=== PATIENT | male | born 1950 | race Caucasian/White ===

== ENCOUNTER 2021-10-04 19:06 | Emergency (ER) | payer MEDICARE ==
[2021-10-04 19:12] VITALS: TEMP 97.1
--- NOTE | 2021-10-04 19:26 | ED ---
General Adult HPI - General Chief complaint: Urogenital Stated complaint: Blood in urine Time Seen by Provider: 10/04/21 19:13 Source: patient, RN notes reviewed Mode of arrival: ambulatory Limitations: no limitations - History of Present Illness Initial comments: Patient is a pleasant 71-year-old male presenting to the emergency Department with an episode of hematuria. Episode occurred prior to arrival. No discomfort. No frequency. No urgency. No rectal bleeding. Patient does have recent diagnosis of diverticulitis several weeks ago. Patient denies any abdominal discomfort or rectal bleeding. - Related Data Home Medications Medication Instructions Recorded Confirmed Atorvastatin [Lipitor] 40 mg PO DAILY 10/04/21 10/04/21 Clopidogrel [Plavix] 75 mg PO DAILY 10/04/21 10/04/21 Multivitamins, Thera [Multivitamin 1 tab PO DAILY 10/04/21 10/04/21 (formulary)] Turmeric Root Extract [Turmeric] 500 mg PO DAILY 10/04/21 10/04/21 lisinopriL [Zestril] 20 mg PO DAILY 10/04/21 10/04/21 predniSONE 5 mg PO BID 10/04/21 10/04/21 Previous Rx's Medication Instructions Recorded Cephalexin [Keflex] 500 mg PO QID #20 cap 10/04/21 Allergies Allergy/AdvReac Type Severity Reaction Status Date / Time No Known Allergies Allergy Verified 10/04/21 20:14 Review of Systems ROS Statement: Those systems with pertinent positive or pertinent negative responses have been documented in the HPI. ROS Other: All systems not noted in ROS Statement are negative. Constitutional: Denies: fever Eyes: Denies: eye pain ENT: Denies: ear pain Respiratory: Denies: cough Cardiovascular: Denies: chest pain Endocrine: Denies: fatigue Gastrointestinal: Denies: abdominal pain Genitourinary: Reports: hematuria. Denies: urgency, dysuria, frequency, discharge, testicular pain, testicular mass Musculoskeletal: Denies: back pain Past Medical History Past Medical History: Cancer, CVA/TIA, Hyperlipidemia, Hypertension, Prostate Disorder Additional Past Medical History / Comment(s): prostate cancer History of Any Multi-Drug Resistant Organisms: None Reported Past Surgical History: No Surgical Hx Reported Past Psychological History: No Psychological Hx Reported Smoking Status: Never smoker Past Alcohol Use History: Occasional Past Drug Use History: None Reported General Exam Limitations: no limitations General appearance: alert, in no apparent distress Head exam: Present: normocephalic Eye exam: Present: normal appearance Neck exam: Present: normal inspection Respiratory exam: Present: normal lung sounds bilaterally Cardiovascular Exam: Present: regular rate, normal rhythm GI/Abdominal exam: Present: soft. Absent: distended, tenderness, guarding, rebound, rigid, pulsatile mass exam: Present: normal inspection. Absent: urethral discharge, scrotal swelling Extremities exam: Present: normal inspection Back exam: Present: normal inspection Neurological exam: Present: alert Psychiatric exam: Present: normal affect, normal mood Skin exam: Present: normal color Course Vital Signs 10/04/21 10/04/21 19:08 20:07 Temperature 97.1 F L Pulse Rate 116 H 112 H Respiratory 20 16 Rate Blood Pressure 131/82 131/106 O2 Sat by Pulse 99 98 Oximetry Medical Decision Making - Medical Decision Making Patient reevaluated and symptom-free other than 2 episodes of hematuria. Patient updated and need for close follow-up and states he has urology in [place] where he is going. Patient is comfortable with discharge. Patient advised to be reevaluated increases or other signs including but not limited to fatigue or weakness, difficulty breathing, lightheadedness or other concerns. Patient will be given antibiotics pending close follow-up. - Lab Data Lab Results 10/04/21 Range/Units 19:34 Urine Color Dark Red Urine Appearance Turbid (Clear) Urine pH 5.5 (5.0-8.0) Ur Specific [place] 1.025 (1.001-1.035) Urine Protein 1+ H (Negative) Urine Glucose (UA) Negative (Negative) Urine Ketones Negative (Negative) Urine Blood Large H (Negative) Urine Nitrite Negative (Negative) Urine Bilirubin Negative (Negative) Urine Urobilinogen <2.0 (<2.0) mg/dL Ur Leukocyte Esterase Small H (Negative) Urine RBC >182 H (0-5) /hpf Urine WBC 5 (0-5) /hpf - Radiology Data Radiology results: image reviewed (Abdominal x-ray reveals no acute process) Disposition Clinical Impression: Hematuria Disposition: HOME SELF-CARE Condition: Stable Instructions (If sedation given, give patient instructions): Hematuria (ED) Additional Instructions: Prescription has been sent to pharmacy. Please do follow-up with urology in the next one to 2 days. Local number has been given. Return for lightheadedness, difficulty breathing, fatigue, weakness, increased bleeding, worsening or changing symptoms or other concerns. Please hold Plavix. Please also follow-up with primary care physician in the next day or 2. Prescriptions: Cephalexin [Keflex] 500 mg PO QID #20 cap Is patient prescribed a controlled substance at d/c from ED?: No Referrals: Rudy Medina MD [STAFF PHYSICIAN] - 1-2 days Andi Osman MD [STAFF PHYSICIAN] - 1-2 days Time of Disposition: 20:44
--- NOTE | 2021-10-04 19:42 | XR ---
EXAMINATION TYPE: XR KUB DATE OF EXAM: 10/04/2021 COMPARISON: NONE HISTORY: Immature TECHNIQUE: 2 views FINDINGS: 2 views upright were obtained and show a normal bowel gas pattern. There is no sign of inte stinal obstruction or pneumoperitoneum. Fecal pattern is normal. Lung bases are clear. There are no c alcifications over the kidneys. Bony structures are intact. IMPRESSION: Nonacute abdomen.
[2021-10-04 20:08] VITALS: RESP 16
[2021-10-04 20:16] LABS: Appearance,Urine Turbid (Clear); Bilirubin,Urine Negative (Negative); Blood,Urine Large (Negative); Color,Urine Dark Red; Glucose,Urine (UA) Negative (Negative); Ketones,Urine Negative (Negative); Leukocyte Esterase,Urine Small (Negative); Nitrite,Urine Negative (Negative); PH, Urine 5.5 (5.0-8.0); Protein,Urine 1+ (Negative); RBC,Urine >182 /hpf (0-5); Urobilinogen,Urine <2.0 mg/dL (<2.0); WBC,Urine 5 /hpf (0-5)
[2021-10-04 20:17] LABS: Specific Gravity,Urine 1.025 (1.001-1.035)
[2021-10-04 21:19] VITALS: BP 128/99; PULSE 106
== END 2021-10-04 21:19 | disposition home or self-care (01) ==
LOC: EC 19:06
DX: R31.9 Hematuria, unspecified (principal); I10 Essential (primary) hypertension; E78.5 Hyperlipidemia, unspecified; Z86.73 Personal history of transient ischemic attack (TIA), and cerebral infarction without residual deficits; Z79.01 Long term (current) use of anticoagulants; Z79.899 Other long term (current) drug therapy
CPT/HCPCS: 74018; 81001; 99283